=== PATIENT | female | born 1955 | race Asian ===

== ENCOUNTER 2018-06-03 13:13 | Emergency (ER) | payer OTHER, BC ==
[~2018-06-03] VITALS: Ht 154.9 cm; Wt 64.1 kg
[2018-06-03] MEDS ORDERED: METF-960 PO (13:31)
[2018-06-03 13:38] LABS: GLUCOSE,POINT OF CARE 136 MG/DL (70-110)
[2018-06-03] MEDS ORDERED: KETOROLAC TROMETHAMINE 10 MG TABLET PO ONE (14:15)
[2018-06-03 15:23] VITALS: BP 161/95
== END 2018-06-03 15:41 | disposition home or self-care (01) ==
LOC: EMS 13:14
DX: S52.591A Other fractures of lower end of right radius, initial encounter for closed fracture (principal); S52.691A Other fracture of lower end of right ulna, initial encounter for closed fracture; I10 Essential (primary) hypertension; E11.9 Type 2 diabetes mellitus without complications; E78.00 Pure hypercholesterolemia, unspecified; W18.39XA Other fall on same level, initial encounter; Y93.89 Activity, other specified; Y92.89 Other specified places as the place of occurrence of the external cause; Y99.8 Other external cause status

== ENCOUNTER → 2020-01-30 | Outpatient (CLI) | payer OTHER ==
[~2020-01-30] MED LIST: METF-960 PO; SIMV-260 PO; VALS80TA2 PO
== END | disposition home or self-care (01) ==
LOC: EMS 11:05
PROVIDERS: ATTEND Internal Medicine
DX: Z20.828 Contact with and (suspected) exposure to other viral communicable diseases (principal)
CPT/HCPCS: U0003-CS

== ENCOUNTER → 2020-04-27 | Outpatient (CLI) | payer OTHER ==
[2020-04-27 08:00] LABS: BASOPHILS % (AUTO) 1.7 % (0.0-2.0); EOSINOPHILS % (AUTO) 2.3 % (1.0-6.0); HEMATOCRIT 41.7 % (36-46); HEMOGLOBIN 13.9 g/dL (12.0-16.0); LYMPHOCYTES # (AUTO) 2.2 K/uL (1.0-4.8); LYMPHOCYTES % (AUTO) 35.6 % (22.0-44.0); MEAN CORPUSCULAR HEMOGLOBIN 29.6 pg (26.0-34.0); MEAN CORPUSCULAR HGB CONC 33.4 G/dL (31.0-37.0); MEAN CORPUSCULAR VOLUME 89 fL (80-100); MONOCYTES # (AUTO) 0.4 K/uL (0.1-1.0); MONOCYTES % (AUTO) 6.7 % (2.0-9.0); NEUTROPHILS # (AUTO) 3.4 K/uL (1.8-7.7); NEUTROPHILS % (AUTO) 53.7 % (40.0-70.0); PLATELET COUNT (AUTO) 227 K/uL (150-450)
[2020-04-27 08:30] LABS: HEMOGLOBIN A1C 5.7 % (3.8-5.6)
[2020-04-27 08:56] LABS: ALANINE AMINOTRANSFERASE 24 U/L (12-78); ALBUMIN 4.2 g/dL (3.4-5.0); ALKALINE PHOSPHATASE 60 U/L (46-116); ANION GAP 9 mmol/L (8-16); ASPARTATE AMINOTRANSFERASE 18 U/L (15-37); BILIRUBIN,TOTAL 0.4 mg/dL (0.1-1.0); CALCIUM, TOTAL 9.1 mg/dL (8.8-10.5); CARBON DIOXIDE 28 mmol/L (22-29); CHLORIDE 102 mmol/L (98-107); CHOL/HDL RATIO 2.7 (3.9-5.7); CHOLESTEROL 155 mg/dL (131-200); CREATININE 0.86 mg/dL (0.60-1.30); GLOMERULAR FILTR. RATE CALC > 60 mL/min (>60); GLUCOSE,RANDOM 91 mg/dL (70-110); HDL CHOLESTEROL 58 mg/dL (40-60); LDL CHOL (CALC.) 83 mg/dL (0-130); POTASSIUM 3.9 mmol/L (3.5-5.1); SODIUM SERUM 139 mmol/L (136-145); THYROID STIMULATING HORMONE 0.53 uIU/mL (0.36-3.74); TRIGLYCERIDES 68 mg/dL (15-150); UREA NITROGEN, BLOOD 14 mg/dL (7-18)
== END | disposition home or self-care (01) ==
LOC: LABPV 07:26
PROVIDERS: ATTEND Internal Medicine
DX: E11.69 Type 2 diabetes mellitus with other specified complication (principal)
CPT/HCPCS: 83036; 84443

== ENCOUNTER → 2020-10-12 | Outpatient (CLI) | payer OTHER | END | disposition home or self-care (01) | LOC: RADMN 12:24 | PROVIDERS: ATTEND Internal Medicine | DX: I70.0 Atherosclerosis of aorta (principal); R76.11 Nonspecific reaction to tuberculin skin test without active tuberculosis | CPT/HCPCS: 71045 ==

== ENCOUNTER → 2021-01-09 | Outpatient (CLI) | payer OTHER ==
[2021-01-09 12:20] LABS: BASOPHILS % (AUTO) 0.9 % (0.0-2.0); EOSINOPHILS % (AUTO) 2.2 % (1.0-6.0); HEMATOCRIT 40.4 % (36-46); HEMOGLOBIN 13.6 g/dL (12.0-16.0); LYMPHOCYTES # (AUTO) 2.4 K/uL (1.0-4.8); LYMPHOCYTES % (AUTO) 38.4 % (22.0-44.0); MEAN CORPUSCULAR HEMOGLOBIN 29.9 pg (26.0-34.0); MEAN CORPUSCULAR HGB CONC 33.6 G/dL (31.0-37.0); MEAN CORPUSCULAR VOLUME 89 fL (80-100); MONOCYTES # (AUTO) 0.4 K/uL (0.1-1.0); NEUTROPHILS # (AUTO) 3.3 K/uL (1.8-7.7); NEUTROPHILS % (AUTO) 52.5 % (40.0-70.0); PLATELET COUNT (AUTO) 207 K/uL (150-450); RED BLOOD CELL COUNT(AUTO) 4.54 MIL/uL (4.00-5.20)
[2021-01-09 12:29] LABS: ANION GAP 7 mmol/L (8-16); CARBON DIOXIDE 32 mmol/L (22-29); CHLORIDE 104 mmol/L (98-107); CREATININE 0.77 mg/dL (0.60-1.30); GLUCOSE,RANDOM 92 mg/dL (70-110); POTASSIUM 4.6 mmol/L (3.5-5.1); SODIUM SERUM 143 mmol/L (136-145); UREA NITROGEN, BLOOD 11 mg/dL (7-18)
[2021-01-09 12:30] LABS: ALANINE AMINOTRANSFERASE 25 U/L (12-78); ALKALINE PHOSPHATASE 49 U/L (46-116); ASPARTATE AMINOTRANSFERASE 21 U/L (15-37); BILIRUBIN,TOTAL 0.5 mg/dL (0.1-1.0); CALCIUM, TOTAL 8.7 mg/dL (8.8-10.5); CHOLESTEROL 158 mg/dL (131-200); GLOMERULAR FILTR. RATE CALC > 60 mL/min (>60); HDL CHOLESTEROL 53 mg/dL (40-60); LDL CHOL (CALC.) 90 mg/dL (0-130); THYROID STIMULATING HORMONE 0.34 uIU/mL (0.36-3.74); TOTAL PROTEIN, SERUM 7.5 g/dL (6.4-8.2); TRIGLYCERIDES 75 mg/dL (15-150)
[2021-01-09 12:38] LABS: HEMOGLOBIN A1C 5.8 % (3.8-5.6)
== END | disposition home or self-care (01) ==
LOC: LABPV 07:53
PROVIDERS: ATTEND Internal Medicine
DX: I10 Essential (primary) hypertension (principal); E11.9 Type 2 diabetes mellitus without complications; E78.5 Hyperlipidemia, unspecified
CPT/HCPCS: 80053; 80061; 82043; 82570; 83036; 84443; 85025

== ENCOUNTER 2021-04-10 15:35 | Emergency (ER) | payer OTHER ==
[~2021-04-10] VITALS: Ht 162.6 cm; Wt 54.5 kg
[~2021-04-10 15:35] MED LIST changes: +METF-1211 PO; -METF-960 PO
[2021-04-10] MEDS ORDERED: MECLIZINE HCL 25 MG TABLET PO ONE (17:00)
[2021-04-10] MEDS ORDERED: LORazepam 1 MG TABLET PO ONE (17:00)
[2021-04-10 17:01] LABS: GLUCOMETER DEV NAME(LOC) ERT.5; GLUCOSE,POINT OF CARE 129 MG/DL (70-110)
[2021-04-10 17:36] VITALS: BP 151/86
== END 2021-04-10 18:18 | disposition home or self-care (01) ==
LOC: EMS 15:37
DX: R42 Dizziness and giddiness (principal); F41.9 Anxiety disorder, unspecified; E11.9 Type 2 diabetes mellitus without complications; E78.00 Pure hypercholesterolemia, unspecified; I10 Essential (primary) hypertension
CPT/HCPCS: 82948; 82962; 99283

== ENCOUNTER 2021-05-20 00:08 | Emergency (ER) | payer OTHER | END 2021-05-20 00:54 | disposition left against medical advice (07) | LOC: EMS 00:10 | DX: Z20.822 Contact with and (suspected) exposure to COVID-19 (principal); Z53.21 Procedure and treatment not carried out due to patient leaving prior to being seen by health care provider | CPT/HCPCS: C9803 ==

== ENCOUNTER 2022-02-28 14:16 | Emergency (ER) | payer OTHER ==
[~2022-02-28] VITALS: Ht 162.6 cm; Wt 60.5 kg
[2022-02-28 14:54] VITALS: BP 133/76
[2022-02-28] MEDS ORDERED: RALO60 PO (14:56)
[2022-02-28] MEDS ORDERED: RALO60TA13 PO (14:56)
[2022-02-28] MEDS ORDERED: CHOL500043 PO (14:57)
[2022-03-01] MEDS ORDERED: IBUP-1554 PO
== END 2022-02-28 16:28 | disposition left against medical advice (07) ==
LOC: EMS 14:18
DX: N64.4 Mastodynia (principal); R07.81 Pleurodynia; Z53.21 Procedure and treatment not carried out due to patient leaving prior to being seen by health care provider

== ENCOUNTER 2022-02-28 21:48 | Emergency (ER) | payer OTHER ==
[~2022-02-28] VITALS: Ht 167.6 cm; Wt 60.5 kg
[~2022-02-28 21:48] MED LIST changes: +CHOL500043 PO; +RALO60 PO; +RALO60TA13 PO
[2022-02-28] MEDS ORDERED: IBUPROFEN 600 MG TABLET PO ONE (23:00)
[2022-03-01] VITALS: BP 129/73
[2022-03-01] MEDS ORDERED: IBUP-1554 PO
== END 2022-03-01 00:34 | disposition home or self-care (01) ==
LOC: EMS 21:50
DX: S29.011A Strain of muscle and tendon of front wall of thorax, initial encounter (principal); Z85.3 Personal history of malignant neoplasm of breast; E11.9 Type 2 diabetes mellitus without complications; E78.00 Pure hypercholesterolemia, unspecified; I10 Essential (primary) hypertension; Y93.89 Activity, other specified; Y92.89 Other specified places as the place of occurrence of the external cause; Y99.8 Other external cause status
CPT/HCPCS: 71101; 82962; 99283

== ENCOUNTER 2023-07-11 20:10 | Emergency (ER) | payer OTHER ==
[~2023-07-11] VITALS: Ht 162.6 cm; Wt 57.7 kg
[~2023-07-11 20:10] MED LIST changes: +IBUP-1554 PO; -RALO60TA13 PO
[2023-07-11 20:16] VITALS: TEMP 98.2
[2023-07-11 20:56] LABS: BASOPHILS % (AUTO) 0.6 % (0.0-2.0); EOSINOPHILS % (AUTO) 0.6 % (1.0-6.0); HEMATOCRIT 40.2 % (36-46); HEMOGLOBIN 13.8 g/dL (12.0-16.0); LYMPHOCYTES # (AUTO) 1.8 K/uL (1.0-4.8); MEAN CORPUSCULAR HEMOGLOBIN 30.3 pg (26.0-34.0); MEAN CORPUSCULAR HGB CONC 34.2 G/dL (31.0-37.0); MEAN CORPUSCULAR VOLUME 89 fL (80-100); MONOCYTES # (AUTO) 0.5 K/uL (0.1-1.0); NEUTROPHILS # (AUTO) 5.4 K/uL (1.8-7.7); NEUTROPHILS % (AUTO) 68.8 % (40.0-70.0); PLATELET COUNT (AUTO) 227 K/uL (150-450); RED BLOOD CELL COUNT(AUTO) 4.54 MIL/uL (4.00-5.20); RED CELL DISTRIBUTION WIDTH 13.5 % (11.5-14.5); WHITE BLOOD COUNT (AUTO) 7.8 K/uL (4.5-11.0)
[2023-07-11 21:06] LABS: ANION GAP 8 mmol/L (8-16); CARBON DIOXIDE 30 mmol/L (22-29); CHLORIDE 102 mmol/L (98-107); GLOMERULAR FILTR. RATE CALC > 60 mL/min (>60); GLUCOSE,RANDOM 95 mg/dL (70-110); POTASSIUM 4.1 mmol/L (3.5-5.1); SODIUM SERUM 140 mmol/L (136-145); UREA NITROGEN, BLOOD 14 mg/dL (7-18)
[2023-07-11 21:08] LABS: TROPONIN I-HIGH SENSITIVITY 6 ng/L (<51)
[2023-07-11] MEDS: ACETAMINOPHEN 325 MG TABLET PO ONE (21:23)
[2023-07-11 21:31] LABS: ALANINE AMINOTRANSFERASE 18 U/L (12-78); ALBUMIN 4.1 g/dL (3.4-5.0); ALKALINE PHOSPHATASE 57 U/L (46-116); ASPARTATE AMINOTRANSFERASE 18 U/L (15-37); BILIRUBIN,TOTAL 0.5 mg/dL (0.1-1.0); CREATINE KINASE, TOTAL ONLY 130 U/L (26-192); LIPASE 52 U/L (16-77); TOTAL PROTEIN, SERUM 8.1 g/dL (6.4-8.2)
[2023-07-11] MEDS ORDERED: SODIUM CHLORIDE 0.9% 100 ML ONE ×2 (21:50)
[2023-07-11] MEDS ORDERED: IOHEXOL 350 MG/ML 100 ML VIAL ONE (21:51)
[2023-07-11] MEDS: LIDOCAINE 5% TRANSDERMAL PATCH TD ONE (21:54)
[2023-07-11 23:45] VITALS: BP 138/71; PULSE 80; RESP 18
[2023-07-11 23:48] LABS: APPEARANCE,URINE CLEAR (CLEAR); BILIRUBIN,URINE NEGATIVE (NEGATIVE); COLOR,URINE COLORLESS (YELLOW); GLUCOSE, URINE (UA) NEGATIVE (NEGATIVE); KETONES,URINE NEGATIVE (NEGATIVE); LEUKOCYTE ESTERASE ,URINE NEGATIVE (NEGATIVE); NITRATE,URINE NEGATIVE (NEGATIVE); OCCULT BLOOD,URINE NEGATIVE (NEGATIVE); PROTEIN,URINE NEGATIVE (NEGATIVE); SPECIFIC GRAVITIY, URINE 1.039 (1.003-1.030); UROBILINOGEN,URINE <=1.0 mg/dL (<=1.0)
[2023-07-12] MEDS ORDERED: IBUP-1554 PO (00:09)
== END 2023-07-12 00:50 | disposition home or self-care (01) ==
LOC: EMS 20:11
DX: R07.89 Other chest pain (principal); E11.9 Type 2 diabetes mellitus without complications; E78.00 Pure hypercholesterolemia, unspecified; I10 Essential (primary) hypertension; Z98.890 Other specified postprocedural states; V98.8XXA Other specified transport accidents, initial encounter; Y93.89 Activity, other specified; Y92.89 Other specified places as the place of occurrence of the external cause; Y99.8 Other external cause status
CPT/HCPCS: 99285; 71260; 71045; 80053; 81003; 82550; 83690; 84484; 85025; 36415; 72125; 74177; 93005; Q9967; J7050; 72193; 74160

== ENCOUNTER → 2023-10-05 | Outpatient (CLI) | payer OTHER ==
[2023-10-05 09:29] LABS: BASOPHILS % (AUTO) 0.9 % (0.0-2.0); EOSINOPHILS % (AUTO) 2.3 % (1.0-6.0); HEMATOCRIT 37.6 % (36-46); HEMOGLOBIN 12.5 g/dL (12.0-16.0); LYMPHOCYTES # (AUTO) 1.6 K/uL (1.0-4.8); LYMPHOCYTES % (AUTO) 29.5 % (22.0-44.0); MEAN CORPUSCULAR HEMOGLOBIN 29.7 pg (26.0-34.0); MEAN CORPUSCULAR HGB CONC 33.3 G/dL (31.0-37.0); MEAN CORPUSCULAR VOLUME 89 fL (80-100); MONOCYTES # (AUTO) 0.3 K/uL (0.1-1.0); MONOCYTES % (AUTO) 5.7 % (2.0-9.0); NEUTROPHILS # (AUTO) 3.4 K/uL (1.8-7.7); NEUTROPHILS % (AUTO) 61.6 % (40.0-70.0); PLATELET COUNT (AUTO) 209 K/uL (150-450); RED BLOOD CELL COUNT(AUTO) 4.22 MIL/uL (4.00-5.20); RED CELL DISTRIBUTION WIDTH 13.2 % (11.5-14.5); WHITE BLOOD COUNT (AUTO) 5.5 K/uL (4.5-11.0)
[2023-10-05 09:57] LABS: ALANINE AMINOTRANSFERASE 17 U/L (12-78); ALBUMIN 3.4 g/dL (3.4-5.0); ALKALINE PHOSPHATASE 41 U/L (46-116); ANION GAP 5 mmol/L (8-16); ASPARTATE AMINOTRANSFERASE 10 U/L (15-37); BILIRUBIN,TOTAL 0.5 mg/dL (0.1-1.0); CALCIUM, TOTAL 8.6 mg/dL (8.8-10.5); CARBON DIOXIDE 29 mmol/L (22-29); CHLORIDE 107 mmol/L (98-107); CHOL/HDL RATIO 2.2 (3.9-5.7); CHOLESTEROL 144 mg/dL (131-200); CREATININE 0.67 mg/dL (0.60-1.30); GLOMERULAR FILTR. RATE CALC > 60 mL/min (>60); GLUCOSE,RANDOM 93 mg/dL (70-110); HDL CHOLESTEROL 66 mg/dL (40-60); LDL CHOL (CALC.) 70 mg/dL (0-130); POTASSIUM 3.1 mmol/L (3.5-5.1); SODIUM SERUM 141 mmol/L (136-145); THYROID STIMULATING HORMONE 0.12 uIU/mL (0.36-3.74); TOTAL PROTEIN, SERUM 6.7 g/dL (6.4-8.2); TRIGLYCERIDES 41 mg/dL (15-150); UREA NITROGEN, BLOOD 11 mg/dL (7-18)
[2023-10-05 12:45] LABS: HEMOGLOBIN A1C 5.5 % (3.8-5.6)
[2023-10-06 08:07] LABS: CREATININE, URINE (mALB) 40.9 mg/dL (Not Estab.)
== END | disposition home or self-care (01) ==
LOC: LABMN 08:47
PROVIDERS: ATTEND Internal Medicine
DX: E78.2 Mixed hyperlipidemia (principal); I10 Essential (primary) hypertension; E11.9 Type 2 diabetes mellitus without complications; E55.9 Vitamin D deficiency, unspecified; Z20.1 Contact with and (suspected) exposure to tuberculosis
CPT/HCPCS: 80053; 80061; 82043; 82306; 82570; 83036; 84443; 85025; 86480